=== PATIENT | female | born 1965 | race Caucasian/White ===

== ENCOUNTER 2023-05-28 09:53 | Day surgery (SDC) | payer BC | END 2023-05-28 13:48 | disposition home or self-care (01) | LOC: DS 09:53 | PROVIDERS: ATTEND Surgery | DX: Z12.11 Encounter for screening for malignant neoplasm of colon (principal); K63.5 Polyp of colon | CPT/HCPCS: 45380; 88305; 82962; J2704; J7030; J3490 ==